=== PATIENT | female | born 1995 | race African-American/Black ===

== ENCOUNTER 2019-01-27 18:11 | Inpatient (IN) ==
--- NOTE | 2019-01-27 18:29 | PROVIDER DOCUMENTATION ---
HPI-General Adult - General Chief Complaint: Flu Symptoms Stated Complaint: SYNCOPE Time Seen by Provider: 01/27/19 18:27 Source: patient Allergies/Adverse Reactions: Patient Allergies Allergy/AdvReac Type Severity Reaction Status Date / Time cat dander Allergy RASH Verified 01/25/19 22:24 dog dander Allergy HIVES Verified 01/25/19 22:24 mushroom Allergy HIVES Verified 01/25/19 22:24 peanut Allergy ANAPHYLAXIS Verified 01/25/19 22:24 Home Medications: Home Medication List Medication Instructions Recorded Confirmed Last Taken Type Metformin E.r. [Glucophage Xr] 500 mg PO DAILY 01/13/19 01/27/19 Unknown History Cetirizine [Zyrtec] 10 mg PO DAILY 01/21/19 01/27/19 Unknown History Hydroxyzine [Atarax] 50 mg PO TID PRN 01/21/19 01/27/19 Unknown History Ibuprofen 800 mg PO Q8H PRN PRN #30 tab 01/26/19 01/27/19 Unknown Rx Brompheniramine/Pseudoephed/Dm 118 ml PO PRN PRN 01/27/19 01/27/19 Unknown History [Nbibjtfusj-Rykifxhckee-Ht Syr] - History of Present Illness -Gen Adult Nature of Presenting Problems: 23yo female presents with CC of vomiting and passing out. The patient reports se veral weeks of sore throat, however over this past weekend the patient began to noted fevers and vomiting. The patient reports that she has also been passing out and also reports sore throat and sore neck. The patient reports increase fatigue as well as headache and increase urination, but no dysuria. The patient does reports some hallucinations today of feeling like soming is crawling on her. The patient denies bloody stool or vomit. Review of Systems - Adult - REVIEW OF SYSTEMS - ADULT Constitutional: reports: fever Eyes: reports: blurred vision Ears, Nose, Mouth & Throat: reports: throat pain Cardiovascular: reports: chest pain (intermitient) Respiratory: reports: cough Gastrointestinal: reports: abdominal pain, nausea, vomiting. denies: diarrhea Genitourinary: reports: frequency Musculoskeletal: reports: neck pain Integumentary: reports: no symptoms reported. denies: rash Neurological: reports: loss of balance Psychiatric: reports: other (hallucinations) Endocrine: reports: no symptoms reported Hematologic/Lymphatic: reports: no symptoms reported Allergic/Immunologic: reports: no symptoms reported Past History - Adult - PAST MEDICAL HISTORY-ADULT Review of Records: reports: Old Records Reviewed, Nursing Assessment Review Major Childhood Illnesses: reports: denies history Cardiovascular: reports: hyperlipidemia Respiratory: reports: denies history Gastrointestinal: reports: denies history Obstetrical/Gynecological: reports: denies history Genitourinary: reports: denies history Musculoskeletal: reports: denies history Neurological: reports: denies history Psychiatric: reports: anxiety, depression Endocrine/Immune: reports: other ("borderline" DM) Other Conditions: reports: denies history - PRIOR SURGERIES/PROCEDURES Surgical/Procedure History: reports: other (wisdom teeth) - PRIOR HOSPITALIZATIONS Prior Hospitalizations: reports: none - IMMUNIZATION STATUS Childhood Immunizations: See Nurse Assessment Flu Vaccine: See Nurse Assessment - FAMILY HISTORY Family History: reviewed, not pertinent Physical Exam-General - PHYSICAL EXAM-ADULT Initial Vital Signs Reviewed: Yes - CONSTITUTIONAL General Appearance: appears well, alert, no apparent distress - EYES Eyes: photophobia, other (pupils minimally reactive bilaterally). negative: conjuctival exudate, sclera injected, scleral icterus - HEAD, EARS, NOSE, MOUTH & THROAT HENMT: normocephalic/atraumatic - NECK Neck: meningismus (pain with chin to chest) - RESPIRATORY Respiratory: normal breath sounds - CARDIOVASCULAR Cardiovascular: tachycardia - GASTROINTESTINAL (ABDOMEN) Abdominal Exam: soft, tenderness (RUQ and LUQ). negative: rebound - MUSCULOSKELETAL Extremity: non-tender, other (strength 5/5 in upper and LE extremities) - SKIN Integumentary: normal color, warm/dry - NEUROLOGIC Neurologic: sensory deficit (reports decrease sensation in the LLE vs RLE), other (CNII-XII normal with exception of minimally reactive pupils bilaterally.) - PSYCHIATRIC Psych/Mental Status: normal mood/affect, normal thought content, normal thought process, oriented x 3 Progress - PLAN OF CARE/RESULTS Progress/Plan/Lab Results: Vital Signs - 8 hr 01/27/19 18:20 Temperature 101.8 F H Pulse Rate 135 H Respiratory Rate 20 Blood Pressure 114/67 O2 Sat by Pulse Oximetry 96 Result Diagrams: 01/27/19 18:45 01/27/19 18:45 - REASSESSMENT Reassessment #1 Status: other (Originally some concern for meningitus, however attending Dr. Castorena evaluated the patient and did not find significant menagismus. He does report that he is concerned about the patient having mumps given her fever and large swollen right cervical lymph node. Continuing to monitor, amylase pending, mono-negative. Will start another fluid bolus.) Reassessment #2 Status: other (Patient resting in bed comfortably. HR improved with fluid bolus. Neck ultrasound with possible neck abscess will order CT neck. Continue to monitor closely.) Reassessment #3 Status: other (Discussed case with the hosptialist team who recomend steroids, abx, and admission. ENT request transfer to [facility]. Will give first dose of steroids her in the ED ENT recomended 8mg dexamethasone followed by 4mg q8 x2.) Reassessment #4 Time Reassessed: 01:29 Status: other (Discussed the case with Dr. Michelle who has accepted the patient. Will plan for transfer to [facility].) Departure - Departure Date of Disposition Decision: 01/28/19 Time of Disposition Decision: 00:33 DIAGNOSIS: Retropharyngeal and parapharyngeal abscess Sepsis Qualifiers: Sepsis type: sepsis due to unspecified organism Sepsis acute organ dysfunction status: without acute organ dysfunction Qualified Code(s): A41.9 - Sepsis, unspecified organism Disposition: ADMITTED INPATIENT 09 Certified Medical Emergency: Emergent Condition: Fair Referrals and Follow-Ups: Maine Frye CRNP [Primary Care Provider] - - Critical Care Note This patient required my direct & personal management of CC.: No Attestation - Physician/ MIRTA Attestation Patient care was provided by Advanced Practice Provider:: No The physician spent face to face time with patient:: Yes Advanced Practice Provider documentation review:: Supervising physician onsite and consulted in the evaluation and care of this patient. The physician did have a face to face encounter with the patient.
[2019-01-27] MEDS ORDERED: NS 1,000 ML IV ONE ×3 (18:57→22:11)
[2019-01-27 19:06] LABS: BASO# 0.01 X1000 (0.0-0.2); BASO% 0.1 % (0.0-0.8); HEMATOCRIT 36.9 % (37.0-47.0); IMM GRAN# 0.05 X1000 (0.0-0.04); IMM GRAN% 0.3 % (0.0-0.5); LYMPH# 1.86 X1000 (1.2-3.4); LYMPH% 11.5 % (20.5-51.1); MCH 28.4 PG (27-31); MCHC 32.5 g/dL (33-37); MCV 87.4 FL (81-99); MONO# 1.49 X1000 (0.11-0.59); MONO% 9.2 % (1.7-9.3); MPV 9.9 FL (7.4-10.4); NEUT# 12.81 X1000 (1.4-6.5); NEUT% 78.9 % (42.2-75.2); PLT 317 X1000 (130-400); RBC 4.22 XMIL (4.2-5.4); RDW 13.7 % (11.5-14.5); WBC 16.22 X1000 (4.8-10.8)
[2019-01-27 19:09] LABS: INR 1.02; PROTIME 13.9 Seconds (11.0-16.0)
[2019-01-27 19:10] LABS: PTT 34.1 Seconds (22.3-41.8)
[2019-01-27 19:23] LABS: AGAP 14; ALBUMIN 4.1 g/dL (3.5-5.0); ALKALINE PHOSPHATASE 78 U/L (32-104); BUN 8 mg/dL (8-22); CALCIUM 9.2 mg/dL (8.8-10.2); CHLORIDE 97 mmol/L (98-107); CK PROFILE 45 U/L (24-173); COSMO 267; CREATININE 0.8 mg/dL (0.5-0.9); ESTIMATED GFR > 60; GLUCOSE 142 mg/dL (70-104); GOT 15 U/L (10-30); GPT 13 U/L (10-36); POTASSIUM 3.8 mmol/L (3.5-5.1); SODIUM 133 mmol/L (136-145); TCO2 22 mmol/L (25-35); TOTAL PROTEIN 7.5 g/dL (6.3-8.3)
--- NOTE | 2019-01-27 19:39 | Diag Imaging Result Doc PS360 ---
EXAM: CHEST-1 VIEW 01/27/2019 HISTORY: SIRS+ with cough TECHNIQUE: Erect AP portable at 1921 COMMENT: The inspiration is suboptimal. Compared to 01/26/2019 otherwise are has been no significant change. IMPRESSION: Poor inspiration. Electronically signed by Rogelio Renee 01/27/2019 7:36 PM
[2019-01-27 20:01] LABS: INFLUENZA A NEGATIVE (NEGATIVE); INFLUENZA B NEGATIVE (NEGATIVE)
[2019-01-27] MEDS ORDERED: TYLENOL PO ONE (20:13)
[2019-01-27] MEDS ORDERED: ZOFRAN IV ONE (20:13)
[2019-01-27 20:18] LABS: BILIRUBIN URINE NEGATIVE (NEGATIVE); BLOOD URINE 1+ (NEGATIVE); CLARITY CLEAR (CLEAR); COLOR YELLOW; GLUCOSE URINE NEGATIVE (NEGATIVE); KETONE URINE 2+(Moderate) mg/dL (NEGATIVE); LEUKOCYTES URINE 2+ (NEGATIVE); NITRITE URINE NEGATIVE (NEGATIVE); PH URINE 6.5; PROTEIN URINE TRACE mg/dL (NEGATIVE); UROBILINOGEN URINE NORMAL
[2019-01-27 20:22] LABS: URINE SOURCE CLEAN CATCH
[2019-01-27 20:25] LABS: URINE BACTERIA 2+ /HFP; URINE CAST NONE SEEN /LPF; URINE CRYSTAL NONE SEEN /HPF; URINE EPITHELIAL CELLS >10 /HPF (<10); URINE RBC <10 /HPF (<10); URINE WBC 20-40 /HPF (<10); URINE YEAST NONE SEEN /HPF
--- NOTE | 2019-01-27 20:48 | Diag Imaging Result Doc PS360 ---
EXAM: CT HEAD W/O CONTRAST 01/27/2019 HISTORY: Headache and hallucinations TECHNIQUE: This exam was performed using automated exposure control, adjustment of mA or kV according to patient size, and/or use of iterative reconstruction technique. COMMENT: There is no evidence of mass effect, bleed, or abnormal extra-axial fluid collection. Compared to 11/03/2016 there has been no significant change in the appearance of the brain. The visualized paranasal sinuses are clear. The calvarium is intact. IMPRESSION: No evidence of acute intracranial disease. Electronically signed by Rogelio Renee 01/27/2019 8:45 PM
[2019-01-27] MEDS ORDERED: ROCEPHIN 2 GM in NS 50 ML IV ONE (22:48)
[2019-01-27] MEDS ORDERED: ROCEPHIN 1 GM in NS 50 ML IV ONE ×2 (23:17→23:58)
[2019-01-28] MEDS ORDERED: DECADRON PO ONE (00:32)
[2019-01-28] MEDS ORDERED: TYLENOL PO PRN (03:52)
[2019-01-28] MEDS ORDERED: ZOFRAN IV PRN (03:52)
[2019-01-28] MEDS ORDERED: ATARAX PO PRN (03:59)
[2019-01-28] MEDS ORDERED: DECADRON IV SCH (04:00)
[2019-01-28] MEDS: NS 1,000 ML IV SCH ×2 (04:43→15:52)
[2019-01-28] MEDS: CLINDAMYCIN 600 MG/NS 600 MG/50 ML IVPB IV SCH ×3 (04:55→21:07)
--- NOTE | 2019-01-28 07:06 | Diag Imaging Result Doc PS360 ---
CT NECK W/CONTRAST - 01/27/2019 INDICATION: Neck pain and sepsis COMPARISON: CT cervical spine 02/10/2014 FINDINGS: There is significant enlargement of the lingual tonsils bilaterally, left greater than right. Within the left middle tonsil there is a small hypodense area that appears heterogeneous. This measures 11 mm. This may represent a small developing tonsillar abscess. There is significant reactive cervical lymphadenopathy bilaterally, left greater than right. Otherwise the soft tissues of the neck and mucosal surfaces are clear. Orbits and orbital contents are normal. There are large calcified granulomas in the AP window, left hilum, and left tracheobronchial angle. Bones are intact and well mineralized. IMPRESSION: Severe tonsillitis. Possible small developing abscess within the left lingual tonsil. Reactive cervical lymphadenopathy. This exam was performed using automated exposure control, adjustment of mA or kV according to patient size, and/or use of iterative reconstruction technique Electronically signed by Pablo Cosme 01/28/2019 7:03 AM
--- NOTE | 2019-01-28 07:09 | HISTORY AND PHYSICAL ---
PRIMARY CARE PROVIDER: Maine Frye. CHIEF COMPLAINT: Sore throat and passing out. HISTORY OF PRESENT ILLNESS: Ms. Garrett is a 23-year-old, -[place] female who presented to the [facility] ER today. The patient states that she has been having syncopal episodes, fever, and a sore throat for greater than a week. The patient states she has been unable to eat anything for greater than a week. The patient does have a past medical history of diabetes type 2. She has been having swelling to the right side of her neck. She has also been having fevers and chills. The patient states that she had a total of 4 syncopal episodes today. She is having weakness, difficulty walking, increased urination, muscle pain, and extreme sore throat to the point where she cannot eat. The patient states that she was in [facility] ER a few days ago. She stayed in this ER several hours. They did send her home after several hours. She did have a vomiting episode after she was sent home at that time. There was the only vomiting episode that she did have. Fredrick, in the ER at [place], they did do a CT scan of the throat. They did note her to have a pharyngeal abscess. They did consult Dr. Garcia. After speaking with Dr. Garcia, he did recommend that the patient be transferred to [facility]. He also recommend her to receive steroids and antibiotics. The patient is also complaining of occasional headaches. She is denying any other pain. Upon presentation, the patient does have some swelling noted to her neck, unable to really see her tonsillar area. The tongue does appear to be very dry. Lymph nodes appear to be swollen around the neck region. PAST MEDICAL HISTORY: Diabetes mellitus type 2, anxiety. PAST SURGICAL HISTORY: [place] teeth removal in 2017 and adenoidectomy as a child. FAMILY HISTORY: Both father and mother are positive for hypertension, diabetes, CVA, and heart issues. SOCIAL HISTORY: The patient lives in [place] with her mother. She denies any alcohol, smoking, or drug abuse. ALLERGIES: Mushrooms, peanuts, animal dander. HOME MEDICATIONS: Zyrtec 10 mg p.o. daily, hydroxyzine 50 mg p.o. t.i.d., metformin 500 mg p.o. daily. LABORATORY DATA AND DIAGNOSTICS: White blood cell count 16.22, red blood cell count 4.22, hemoglobin 12, hematocrit 36.9, platelet count 317,000. PT 13.9, INR 1.02, PTT 34.1. Sodium 133, potassium 3.8, chloride 97, carbon dioxide 22, anion gap 14, BUN is 8, creatinine 0.8, estimated GFR is greater than 60, glucose 142, calcium 9.2. Total bilirubin is 0.4, AST 16, ALT is 13, alkaline phosphatase 78. Creatine kinase 45, troponin less than 0.01. CRP greater than 10,000. Plasma lactate 0.5, amylase 44. Urinalysis shows 2+ ketones, positive for bacteria 2+. Chest x- ray is negative. Head CT shows no evidence of acute intracranial disease. REVIEW OF SYSTEMS: A 12-point review of systems has been obtained and all negative except what is stated above in the HPI. PHYSICAL EXAMINATION: VITAL SIGNS: Temperature 100.2 degrees, pulse rate 101, respiratory rate 18, blood pressure 106/55, O2 saturation 95% on room air. Weight 172 pounds, height 5 feet 2 inches. GENERAL: This is a 23-year-old, -[place] female. She is lying in the bed. She is in no acute distress. She is well-nourished, well-developed. HEENT: Atraumatic, normocephalic. Pupils equal, round, reactive to light. Sclerae are icteric. Mucous membranes are dry. NECK: There is lymph node involvement on the right side. There is a swollen lymph node to the right neck area. The trachea is hard to visualize because of the swollen neck. I did not visualize any JVD. However, it is hard to visualize because of her neck being so swollen. CARDIOVASCULAR: Regular rate and rhythm. There are no murmurs, gallops, or rubs appreciated. RESPIRATORY: Lung sounds are clear with equal chest excursion. Respirations are nonlabored. No accessory muscle usage. GI: Soft, nontender, nondistended. Bowel sounds are present x4. NEUROLOGIC: Cranial nerves 2-12 are intact. The patient is awake, alert, and oriented. Able to follow all commands. MUSCULOSKELETAL: Full distal strength noted. No abnormalities. No deformities. EXTREMITIES: No clubbing, no cyanosis, no edema. DP and PT pulses are present. SKIN: Warm, dry, and intact. No rashes. No bruises. No diaphoresis. ASSESSMENT AND PLAN: 1. Possible pharyngeal abscess. We will admit this patient to the medical floor. We have consulted Ears, Nose, and Throat. We are starting this patient on clindamycin intravenously per Ears, Nose, and Throat recommendations. We have started this patient on steroids. Decadron was given at [facility] Emergency Room. We are going to continue this steroid at 4 mg intravenously every 12 hours. We are going to give her pain medicine of tramadol. 2. Syncopal episode. I am going to get some orthostatic blood pressures on her and support her with intravenous fluid hydration. 3. Diabetes mellitus type 2. I am going to restart her metformin, give her intravenous fluid hydration. I am going to do fingersticks before meals and at bedtime, and give her sliding scale insulin if needed. I have started her on a clear liquid diet. 4. Deep venous thrombosis prophylaxis. I placed her with compression stockings. 5. Gastrointestinal prophylaxis. I have placed her on Prilosec daily. The plan is to admit her to the medical floor. We will place her on clindamycin intravenously. We are giving her Decadron for the swelling. I am also giving her tramadol for pain medication. We have consulted Ears, Nose, and Throat. We are going to do orthostatic vital signs. We are going to support her with intravenous fluid hydration, start her off on a clear liquid diet and we will advance as tolerated. We will be checking her blood sugars before meals and at bedtime. We are going to repeat some labs tomorrow and repeat a chest x-ray. Give her Tylenol for her fevers., restart some of her home medications. All other further treatment pending hospital course and laboratory data. Dictated by FREEMAN Fierro for Sagar Michelle MD cc: MD Maine Greene
[2019-01-28] MEDS: HUMULIN R SUBQ SCH ×4 (07:38→20:57)
[2019-01-28] MEDS ORDERED: GLUCOPHAGE XR PO SCH (09:00)
[2019-01-28] MEDS ORDERED: ZYRTEC PO SCH (09:00)
[2019-01-28] MEDS: PRILOSEC PO SCH (09:24)
[2019-01-28] MEDS: DECADRON IV SCH ×2 (11:10→23:45)
--- NOTE | 2019-01-28 14:58 | PROGRESS NOTE ---
DATE: 01/28/2019 SUBJECTIVE: This morning, Ms. Garrett refers to be doing slightly better. Still has some pain on swallowing but not as bad as before. OBJECTIVE: Vital signs: Blood pressure is 111/68, pulse of 80, respirations 14, temperature 97.7 degrees. General: Ms. Garrett is a 23-year-old female. She is in bed. No distress. Mucosa is pink and moist. Anicteric. Acyanotic. Neck: Supple. Chest: Clear. Cardiovascular: Regular rate and rhythm. Abdomen: Soft. Extremities: No pedal edema. Central Nervous System: The patient is awake, alert, and oriented. Mouth: Both tonsils look remarkably swollen but I think it is kind of chronic. There is minimum exudation on the left. LABORATORY DATA: None for today. DIAGNOSTIC DATA: A CT scan which was done on admission shows severe tonsillitis, possible small developing abscess within the left lingular tonsil. ASSESSMENT: 1. Odynophagia secondary to severe bilateral tonsillitis, worse on the left than the right. Patient is on antimicrobial therapy, and steroids. ENT has been consulted. 2. Diabetes mellitus controlled. 3. Syncopal episode at home, most likely related to vasovagal reaction. So far, orthostatic vitals were unremarkable. PLAN: In general, Ms. Garrett is fairly stable. She seems to be swallowing a little better. We will advance her diet to full liquid diet. Continue with the clindamycin and dexamethasone. Awaiting ENT evaluation today and we will re-evaluate her tomorrow. cc: Ramesh Byrnes MD
--- NOTE | 2019-01-28 20:26 | CONSULTATION ---
DATE OF CONSULTATION: 01/28/2019 FAMILY PHYSICIAN: FREEMAN Lomeli [*] ADMISSION DIAGNOSES: 1. Syncope. 2. Tonsillitis. HISTORY: This is a lady who came to the emergency room at [facility] yesterday, for sore throat. Emergency room physician notified me of her CT scan findings which indicated swelling and a possible phlegmon in the throat. She was admitted today and apparently is requiring insulin in addition to the antibiotics that she is currently taking. PHYSICAL EXAMINATION: 1. Oral cavity, lips, and gums without lesions or masses. 2. Oropharynx: 3+ tonsils, deep crevices, exudate, and white spots noted on the right tonsil worse than left. No trismus is noted on exam. Neck: She has mild level 2 right-sided reactive lymphadenopathy. Otherwise, supple. IMPRESSION/PLAN: Tonsillitis. I am not sure if this represents bacterial tonsillitis or possibly even mononucleosis. I would recommend checking mononucleosis titers, if not done already. I understand her blood sugars are getting under control and she has had a history over the last several days at least, maybe a week or two, that sound somewhat like the onset of diabetes potentially. This could hinder resolution of this tonsillitis infection. I would recommend continuing antibiotics and that will most likely treat this, if it is indeed a bacterial tonsillitis. CT scan was reviewed and it looks like there is a phlegmon in the left tonsil, which is interesting not the side in which she is having pain today nor yesterday. My recommendation for antibiotic coverage is Unasyn, but she seems to be responding on the current regimen. I suspect that she would do better with something a bit more broad-spectrum than just clindamycin. I am not sure if the plan is to continue Rocephin with her clindamycin, as she got 2 g of Rocephin last night, but I will leave this up to the hospitalist team. My suspicion is surgery will not be necessary given her response so far to medications, but I will follow along. cc: MD JOSÉ Hutchinson
[2019-01-28] MEDS: ZYRTEC PO SCH (21:07)
[2019-01-28] MEDS: ULTRAM PO PRN (23:48)
[2019-01-29] MEDS: NS 1,000 ML IV SCH (04:41)
[2019-01-29] MEDS: CLINDAMYCIN 600 MG/NS 600 MG/50 ML IVPB IV SCH ×2 (04:41→12:43)
[2019-01-29] MEDS: HUMULIN R SUBQ SCH ×4 (06:28→22:07)
[2019-01-29 07:02] LABS: BASO# 0.01 X1000 (0.0-0.2); BASO% 0.1 % (0.0-0.8); HEMATOCRIT 31.7 % (37.0-47.0); HEMOGLOBIN 10.2 g/dL (12.0-16.0); IMM GRAN# 0.04 X1000 (0.0-0.04); IMM GRAN% 0.3 % (0.0-0.5); LYMPH# 1.21 X1000 (1.2-3.4); LYMPH% 7.8 % (20.5-51.1); MCH 28.3 PG (27-31); MCHC 32.2 g/dL (33-37); MCV 88.1 FL (81-99); MONO# 0.94 X1000 (0.11-0.59); MPV 10.1 FL (7.4-10.4); NEUT# 13.38 X1000 (1.4-6.5); NEUT% 85.8 % (42.2-75.2); PLT 342 X1000 (130-400); RDW 13.5 % (11.5-14.5); WBC 15.58 X1000 (4.8-10.8)
[2019-01-29 07:16] LABS: HEMOGLOBIN A1C 5.4 % (4.8-6.0)
[2019-01-29 07:22] LABS: LYMPHS 10 % (21-51); MONO 4 % (1-9); SEGS 86 % (42-75)
[2019-01-29 07:24] LABS: AGAP 15; BUN 10 mg/dL (8-22); CALCIUM 8.6 mg/dL (8.8-10.2); CHLORIDE 103 mmol/L (98-107); COSMO 279; CREATININE 0.6 mg/dL (0.5-0.9); ESTIMATED GFR > 60; GLUCOSE 139 mg/dL (70-104); MAGNESIUM 2.4 mg/dL (1.5-2.7); POTASSIUM 4.5 mmol/L (3.5-5.1); SODIUM 139 mmol/L (136-145); TCO2 21 mmol/L (25-35)
--- NOTE | 2019-01-29 08:06 | Diag Imaging Result Doc PS360 ---
CHEST-PORTABLE - 01/29/2019 INDICATION: dyspnea COMPARISON: 01/27/2019 FINDINGS: The lungs are normally expanded and clear. Heart size and mediastinal contours are normal. No pneumothorax or pleural effusion. IMPRESSION: Negative exam. Electronically signed by Pablo Cosme 01/29/2019 8:04 AM
[2019-01-29] MEDS: LANTUS INSULIN SUBQ SCH (08:44)
[2019-01-29] MEDS: PRILOSEC PO SCH (08:45)
[2019-01-29] MEDS: ZOSYN 3.375 GM in NS 50 ML IV SCH ×3 (08:49→22:06)
[2019-01-29] MEDS: DECADRON IV SCH (12:26)
--- NOTE | 2019-01-29 16:46 | PROGRESS NOTE ---
DATE: 01/29/2019 SUBJECTIVE: This morning Ms. Garrett refers to be doing slightly better. Still has a little pain when swallowing, but she thinks it is a lot better than before. OBJECTIVE: Vital signs: Blood pressure is 100/59, pulse of 65, respirations 20, temperature 98.7. General: Ms. Garrett is a 23-year-old female. She is in bed no distress. HEENT: Mucosa is pink and moist. Anicteric. Acyanotic. Mouth, both tonsils are still slightly swollen, but less than yesterday and slightly exudation on the left tonsil. Neck: Supple. Chest: Good air entry bilateral. There was no crepitations no rhonchi. Cardiovascular: Regular rate and rhythm. No murmurs, no rubs, no gallops. Abdomen: Soft, nontender. Extremities: No pedal edema. PRECISION MECHANICAL INSTRUMENT MAKER: PRECISION MECHANICAL INSTRUMENT MAKER patient is awake, alert, and oriented. LABORATORY DATA: WBC is 15.58, hemoglobin 10.2, platelet count of 342,000. Chemistry is unremarkable. ASSESSMENT: 1. Odynophagia secondary to severe bilateral tonsillitis, worse on the left than the right with presumed phlegmon. The patient is currently on antimicrobial coverage and steroids. ENT has evaluated her. 2. Diabetes mellitus controlled on insulin regimen. 3. Syncopal episode at home, most likely vasovagal reaction. In general Ms. Garrett is doing a little better now. She is currently on Zosyn and clindamycin. We will keep her on the current treatment for 24 hours, re- evaluate her tomorrow and then go from there. IV fluids have been discontinued. cc: Ramesh Byrnes MD [facility]
[2019-01-29] MEDS: ULTRAM PO PRN (17:38)
[2019-01-29] MEDS: ZYRTEC PO SCH (22:07)
[2019-01-30] MEDS: CLINDAMYCIN 600 MG/NS 600 MG/50 ML IVPB IV SCH ×4 (00:05→22:29)
[2019-01-30] MEDS: DECADRON IV SCH ×2 (00:08→11:23)
[2019-01-30] MEDS: ZOSYN 3.375 GM in NS 50 ML IV SCH ×5 (06:43→22:28)
[2019-01-30] MEDS: HUMULIN R SUBQ SCH ×4 (06:56→22:27)
[2019-01-30] MEDS: PRILOSEC PO SCH (09:29)
[2019-01-30] MEDS: LANTUS INSULIN SUBQ SCH (09:33)
--- NOTE | 2019-01-30 16:18 | PROGRESS NOTE ---
DATE: 01/30/2019 SUBJECTIVE: This morning Ms. Garrett refers to be doing fairly okay. She still has some pain. Today, she said it is on the left side. OBJECTIVE: Vital signs: Blood pressure is 103/61, pulse of 72, respirations 18, and temperature 97.6 degrees. General: Ms. Garrett is a 23-year-old female. She is in bed in no distress. She was actually getting her lunch when I went in. She was tolerating her full liquid diet. Chest: Clear to auscultation. No crepitations. No rhonchi. Cardiovascular: Regular rate and rhythm. Abdomen: Soft. Extremities: No pedal edema. AIRLINE OPERATIONS AGENT: Patient is awake, alert, and oriented. Mouth: There is still swelling in both tonsils, but I did not see any exudations today. LABORATORY: No lab work for this morning. ASSESSMENT: 1. Odynophagia secondary to severe bilateral tonsillitis, worse on the left than the right with presumed left-sided phlegmon. The patient is currently on the IV antibiotics. ENT has evaluated her as well. I spoke directly with Dr. Chung today. He recommends to continue with the current antimicrobial coverage. However, if the patient continues to be symptomatic tomorrow, to scan her to make sure that the phlegmon has not turned into abscess. 2. Diabetes mellitus on metformin at home. Patient A1c is 5.4 here. We will continue with the insulin regimen. The patient will be able to return back on her oral hypoglycemic agents after discharge. 3. Syncopal episode at home, most likely vasovagal reaction. PLAN: In general, I think Ms. Garrett is doing well. She is just 24 hours on the Zosyn. We are going to give her another day, and re-evaluate her tomorrow. If she is still remarkably symptomatic, we will re-scan her neck to rule out any abscess formation. If she is doing a lot better tomorrow, then I think we can get her discharged. cc: Ramesh Byrnes MD
[2019-01-30] MEDS: ULTRAM PO PRN (16:38)
[2019-01-30] MEDS: ZYRTEC PO SCH (22:28)
[2019-01-30] MEDS ORDERED: NS 500 ML ONE (23:19)
[2019-01-31] MEDS: DECADRON IV SCH ×2 (00:38→12:49)
[2019-01-31] MEDS: ZOSYN 3.375 GM in NS 50 ML IV SCH ×2 (01:39→08:19)
[2019-01-31] MEDS: CLINDAMYCIN 600 MG/NS 600 MG/50 ML IVPB IV SCH (06:15)
[2019-01-31] MEDS: HUMULIN R SUBQ SCH ×2 (06:44→11:01)
[2019-01-31 06:58] LABS: HEMATOCRIT 33.5 % (37.0-47.0); HEMOGLOBIN 10.7 g/dL (12.0-16.0); MCH 29.6 PG (27-31); MCHC 31.9 g/dL (33-37); MCV 92.8 FL (81-99); MPV 10.4 FL (7.4-10.4); RBC 3.61 XMIL (4.2-5.4); WBC 9.96 X1000 (4.8-10.8)
[2019-01-31 07:44] LABS: ESTIMATED GFR > 60; PHOSPHORUS 4.6 mg/dL (2.7-4.5)
[2019-01-31] MEDS: PRILOSEC PO SCH (08:19)
[2019-01-31] MEDS: LANTUS INSULIN SUBQ SCH (08:20)
[2019-01-31 09:09] LABS: AGAP 20; ALBUMIN 3.5 g/dL (3.5-5.0); BUN 12 mg/dL (8-22); CALCIUM 9.1 mg/dL (8.8-10.2); CHLORIDE 100 mmol/L (98-107); COSMO 276; GLUCOSE 107 mg/dL (70-104); POTASSIUM 4.6 mmol/L (3.5-5.1); SODIUM 138 mmol/L (136-145); TCO2 18 mmol/L (25-35)
--- NOTE | 2019-01-31 10:18 | Diag Imaging Result Doc PS360 ---
CT NECK W/CONTRAST - 01/31/2019 INDICATION: follow up on tonsil phlegmon COMPARISON: 01/27/2019 FINDINGS: There has been resolution of the small hypodense area within the left lingual tonsil. There is been decrease in the overall size of the tonsils. There is decrease in cervical lymphadenopathy. There are no new abnormalities. IMPRESSION: 1. Resolution of the small hypodense area in the left tonsil. 2. Improvement in the tonsillitis and reactive cervical lymphadenopathy. This exam was performed using automated exposure control, adjustment of mA or kV according to patient size, and/or use of iterative reconstruction technique Electronically signed by Pablo Cosme 01/31/2019 10:16 AM
[2019-01-31 11:31] VITALS: BP 94/44
--- NOTE | 2019-02-01 16:53 | DISCHARGE SUMMARY ---
ADMISSION DATE: 01/28/2019 DISCHARGE DATE: 01/31/2019 FOLLOWUP: Dr. Garcia or Dr. Chung. CONSULTATIONS DURING THIS ADMISSION: ENT was consulted. Patient was seen by Dr. Garcia. INVASIVE PROCEDURES DURING THIS ADMISSION: None. IMAGING STUDIES OF SIGNIFICANCE: 1. Chest x-ray showed poor inspiration. 2. CT scan of the head showed no evidence of acute intracranial disease. 3. Neck CT scan shows severe tonsillitis, possible small developing abscess within the left lingual tonsil, reactive cervical lymphadenopathy. 4. Repeat chest x-ray was unremarkable. 5. Repeat CT scan of the neck this morning, shows resolution of the small hypodense area in the left tonsil. There is also improvement in the tonsillitis and reactive cervical lymphadenopathy. ADMISSION DIAGNOSES: 1. Possible pharyngeal abscess. 2. Syncopal episode. 3. Diabetes. DISCHARGE DIAGNOSES: 1. Odynophagia secondary to severe bilateral tonsillitis, worse on the left than the right, with associated left-sided phlegmon. 2. Diabetes mellitus. On metformin at home. A1c on admission was 5.4. 3. Syncopal episode secondary to vasovagal reaction. DISCHARGE MEDICATIONS: 1. Metformin 500 p.o. daily. 2. Cetirizine 10 mg p.o. daily. 3. Hydroxyzine. 4. Ibuprofen 800 p.o. q.8. 5. Dexamethasone 1 mg p.o. daily. 6. Omeprazole 20 mg p.o. daily. 7. Augmentin 875 one tablet b.i.d. PRESENTING COMPLAINT: Sore throat and passing out. HISTORY OF PRESENTING COMPLAINT: I saw Ms. Garrett, a 23-year-old, female, who presented because of sore throat and passing out, was evaluated and found to have bilateral tonsillitis with possible left tonsil abscess, was admitted for further medical care. HOSPITAL COURSE: Ms. Garrett initially presented to [place]. She was transferred to [facility] for higher level of care. Upon presentation, she was admitted, started on broad-spectrum IV antimicrobial. CT scan did suggest some possible left small abscess in the tonsil. Dr. Garcia evaluated the patient, did not think that was an abscess yet, but did agree that there was bilateral tonsillitis with possible phlegmon. We put her on more broad-spectrum antimicrobial coverage. She did improve throughout her hospital cause. This morning, a repeat scan was done which showed complete resolution. We think Ms. Garrett is clinically stable to be discharged. She has been tolerating her diet. Her A1c is 5.4. We have advised that she probably will be okay with just lifestyle modifications, but she will need to follow up with her primary care doctor on her diabetic management. All of the discharge instructions discussed with her. She voiced understanding. TIME SPENT FOR DISCHARGE: 36 minutes. cc: Ramesh Byrnes MD
== END 2019-01-31 14:54 | disposition home or self-care (01) | DRG 153 ==
LOC: P.ED 18:11 → 4N 01-28 02:05 → SUATTDRO 01-28 02:05
PROVIDERS: ATTEND Internal Medicine